=== PATIENT | male | born 1965 | race Caucasian/White ===

== ENCOUNTER 2017-08-06 16:01 | Emergency (ER) | payer SELFPAY ==
[~2017-08-06] VITALS: Ht 170.2 cm; Wt 118.0 kg
[2017-08-06] MEDS ORDERED: TETANUS, DIPHTHERIA, PERTUSSIS VAC/PF 0.5ML (>7YR OLD) IM ONE ×2 (16:30→21:30)
[2017-08-06 22:29] VITALS: BP 125/80
== END 2017-08-06 22:31 | disposition home or self-care (01) ==
LOC: ER 17:12
DX: S91.331A Puncture wound without foreign body, right foot, initial encounter (principal); W22.8XXA Striking against or struck by other objects, initial encounter; Y93.89 Activity, other specified; Y92.89 Other specified places as the place of occurrence of the external cause; Y99.8 Other external cause status
CPT/HCPCS: 90471; 90715; 99283; Z7610

== ENCOUNTER 2018-07-12 12:45 | Emergency (ER) | payer SELFPAY ==
[~2018-07-12] VITALS: Ht 160 cm; Wt 100.0 kg
[2018-07-12] MEDS ORDERED: IBUPROFEN 600MG TABLET PO ONE (15:30)
[2018-07-12] MEDS ORDERED: BACITRACIN ZINC OINT UDPKT TOP ONE (15:30)
[2018-07-12 15:43] VITALS: BP 130/86
== END 2018-07-12 16:23 | disposition home or self-care (01) ==
LOC: ER 12:51
DX: S61.412A Laceration without foreign body of left hand, initial encounter (principal); Z98.890 Other specified postprocedural states; W26.0XXA Contact with knife, initial encounter; Y93.89 Activity, other specified; Y92.89 Other specified places as the place of occurrence of the external cause; Y99.8 Other external cause status
CPT/HCPCS: 99283; A4217

== ENCOUNTER 2020-08-04 14:55 | Emergency (ER) | payer SELFPAY ==
[~2020-08-04] VITALS: Ht 170.2 cm; Wt 85.0 kg
[2020-08-04 16:27] VITALS: BP 129/81
[2020-08-04] MEDS ORDERED: IMIQ7.5C2 TP (17:00)
== END 2020-08-04 17:07 | disposition home or self-care (01) ==
LOC: ER 14:55
DX: A63.0 Anogenital (venereal) warts (principal)
CPT/HCPCS: 99281

== ENCOUNTER 2020-10-13 14:33 | Inpatient (IN) | payer MEDICAID ==
[~2020-10-13] VITALS: Ht 177.8 cm; Wt 119.7 kg
[~2020-10-13 14:33] MED LIST: IMIQ7.5C2 TP
[2020-10-13] MEDS ORDERED: MORPHINE SULFATE 4 MG/ML CPJ (NOT FOR IM USE) IV ONE (20:30)
[2020-10-13 20:35] LABS: BASOPHILS % 0.6 % (0.0-2.0); EOSINOPHILS % 2.7 % (0.0-5.0); HEMATOCRIT. 31.6 % (42.0-52.0); HEMOGLOBIN. 10.3 g/dL (14.0-18.0); MEAN CORPUSCULAR HEMOGLOBIN 26.2 pg (28.0-32.0); MEAN CORPUSCULAR VOLUME 80.2 fL (80.0-94.0); MEAN PLATELET VOLUME 6.9 fl (7.4-10.4); MONOCYTES % 12.5 % (2.0-8.0); NEUTROPHILS % 75.2 % (40.0-76.0); PLATELET 296 x1000/uL (130-400); RED BLOOD CELL COUNT 3.94 mill/uL (4.7-6.1); RED CELL DISTRIBUTION WIDTH 15.4 % (11.6-14.6)
[2020-10-13 20:41] LABS: CHLORIDE 105 mEq/L (98-107)
[2020-10-13 20:47] LABS: PROTHROMBIN TIME 11.2 sec (9.6-11.0)
[2020-10-13] MEDS ORDERED: PIPERACILLIN/TAZOBACTAM 3.375GM/50ML PREMIX IV ONE (23:15)
[2020-10-13] MEDS ORDERED: PIPERACILLIN/TAZ 3.375G PREMIX 50 ML IV NR (23:30)
[2020-10-13] MEDS ORDERED: IOHEXOL-300 100 ML BOTTLE ONE (23:36)
[2020-10-14] MEDS ORDERED: MORPHINE SULFATE 4 MG/ML CPJ (NOT FOR IM USE) IV ONE (00:45)
[2020-10-14] MEDS ORDERED: HYDROMORPHONE HCL/PF 2MG/ML CPJ IV PRN (05:15)
[2020-10-14] MEDS ORDERED: MAGNESIUM/ALUMINUM HYDROXIDE/SIMETHICONE 30ML UDC PO PRN (05:15)
[2020-10-14] MEDS ORDERED: ONDANSETRON HCL 4MG/2ML INJ IV PRN (05:15)
[2020-10-14] MEDS ORDERED: HYDROCODONE/ACETAMINOPHEN 10/325MG TABLET PO PRN (05:15)
[2020-10-14] MEDS ORDERED: SODIUM CHLORIDE 0.45% 1,000 ML IV SCH (05:15)
[2020-10-14] MEDS ORDERED: ACETAMINOPHEN 325MG TABLET PO PRN (05:15)
[2020-10-14] MEDS ORDERED: CLONIDINE 0.1MG TABLET PO PRN (05:15)
[2020-10-14] MEDS ORDERED: NALOXONE HCL 0.4MG/ML VIAL IV PRN (05:45)
[2020-10-14 08:19] VITALS: BP 91/57
[2020-10-14 10:46] VITALS: BP 91/57
[2020-10-14 11:11] VITALS: BP 91/57
[2020-10-14 12:00] VITALS: BP 100/60
== END 2020-10-14 13:43 | disposition home or self-care (01) | DRG 254 ==
LOC: ER 14:33 → MICUSO 10-14 00:33 → EDBEDREQ 10-14 00:45 → 8WST 10-14 07:33
PROVIDERS: ADMIT Hospitalist; ATTEND Hospitalist
DX: K62.9 Disease of anus and rectum, unspecified (principal)
CPT/HCPCS: 36415; 74177; 80053; 85025; 99285; J2270; J2543; Q9967